=== PATIENT | male | born 1965 | race Caucasian/White ===

== ENCOUNTER 2017-04-29 16:31 | Emergency (ER) | payer OTHER ==
[~2017-04-29] VITALS: Ht 175.3 cm; Wt 99.7 kg
[2017-04-29] MEDS ORDERED: FIORICET 50-301 EACH PO (17:14)
[2017-04-29] MEDS ORDERED: AMLODIPINE BESYL5 MG PO (17:14)
[2017-04-29] MEDS ORDERED: VISTARIL50 MG PO (17:14)
[2017-04-29] MEDS ORDERED: BENAZEPRIL HCL20 MG PO (17:14)
[2017-04-29 19:22] VITALS: BP 167/100
== END 2017-04-29 19:23 | disposition home or self-care (01) ==
LOC: EME 16:31
DX: G44.209 Tension-type headache, unspecified, not intractable (principal); T46.5X6A Underdosing of other antihypertensive drugs, initial encounter; Z91.128 Patient's intentional underdosing of medication regimen for other reason; I10 Essential (primary) hypertension; F43.9 Reaction to severe stress, unspecified; F51.02 Adjustment insomnia; F41.9 Anxiety disorder, unspecified; Z76.0 Encounter for issue of repeat prescription; Z56.6 Other physical and mental strain related to work
CPT/HCPCS: 70450; 93005; 99281; 99284